=== PATIENT | male | born 1950 | race African-American/Black ===

== ENCOUNTER 2016-07-14 15:02 | Inpatient (IN) ==
--- NOTE | 2016-07-14 15:40 | EKG Report ---
Stationary ECG Study [facility] ER Test Date: 07/14/2016 3:40:53 PM Pat Name: EREN YOUNG Department: Room: Gender: M Ax Survey Worker: : 1950 Requested by: Jimenez Peña Order Number: [id number] Reading MD: MOY SHANKAR Intervals [place] Rate: 94 P: 59 ME: 164 QRS: 147 QRSD: 89 T: -33 QT: 367 QTc: 419 Interpretive Statements SINUS RHYTHM WITH FREQUENT SUPRAVENTRICULAR PREMATURE COMPLEXES POSSIBLE RIGHT VENTRICULAR HYPERTROPHY ANTEROSEPTAL MYOCARDIAL INFARCTION, PROBABLY OLD Electronically Signed On 07-14-16 16:18:58 CDT by MOY SHANKAR [email or web address]
[2016-07-14 15:41] LABS: Basophils % 0.3 % (0.0-0.8); Eosinophils # 0.2 10*3/uL (0.0-0.87); Eosinophils % 2.8 % (0.00-10.9); Hematocrit 27.5 VOL% (42.0-52.0); Hemoglobin 8.6 GM/DL (14.0-18.0); Immature Granulocytes % 0.1 %; Immature Granulocytes Absolute 0.01 #; Lymphocytes # 1.2 10*3/uL (1.4-4.0); Mean Corpuscular HGB Conc 31.3 GM/DL (32-36); Mean Corpuscular Hemoglobin 27 PG (27-34); Mean Corpuscular Volume 86.5 FL (87-102); Mean Platelet Volume 9.6 FL (9.6-12.0); Monocytes # 0.8 10*3/uL (0.11-0.8); Monocytes % 11.1 % (1.7-12.7); Neutrophils # 4.9 10*3/uL (1.4-7.4); Neutrophils % 68.7 % (38.7-73.9); Platelet Count 352 T/CUMM (130-400); Red Blood Count 3.18 MC/CUMM (3.8-5.5); Red Cell Distribution Width 14.6 % (9.3-17.3); White Blood Count 7.1 T/CUMM (4-12)
--- NOTE | 2016-07-14 15:46 | XRay Report ---
History short of breath The heart and vessels are enlarged There is [id number] diffuse bilateral hazy and reticular pulmonary opacities with compression of underlying a left pleural effusion. Impression: Congestive failure PROCEDURE INTERPRETED AT [facility] DEPARTMENT OF RADIOLOGY Final Report Signed by: Dr. Liss Contreras
[2016-07-14] MEDS ORDERED: FUROSEMIDE 40 MG/4 ML VIAL IV STA (16:05)
[2016-07-14] MEDS ORDERED: FUROSEMIDE 20 MG/2 ML VIAL ONE (16:11)
[2016-07-14] MEDS ORDERED: FUROSEMIDE 40 MG/4 ML VIAL ONE (16:11)
[2016-07-14 16:17] LABS: Albumin 2.7 G/DL (3.4-5.0); Calcium 8.7 MG/DL (8.5-10.1); Magnesium 1.3 MG/DL (1.8-2.4); Osmolality,Calculated 295.7 MOS/KG (273-304); Total Protein 7.4 G/DL (6.4-8.3)
--- NOTE | 2016-07-14 16:50 | Emergency Department Note ---
Robby Spears Gwan, am scribing for, and in the presence of, Jimenez An MD 15:37. Juve Spears Phillip K, MD, personally performed the services described in this documentation, ascribed by Isi Bustamante in my presence, and it is both accurate and complete 650 . Arrival - Arrival Chief Complaint: Urogenital - Male ED Nursing Triage Note: pt was seen at [place] 3 weeks ago for testicular pain/ swelling. his lasi was increased there. [facility] for same complaint Mode of Arrival: Stretcher Limitations: No Limitations Source: Patient, Family (Sister ), Old Records Reviewed, RN Notes Reviewed - History of Present Illness HPI Narrative: Patient is a 66 y/o black male who presents to the ED with a c/o edema to genital area and abd with an onset 3 weeks ago. Sister stated that pt was hospitalized at [place] [facility] 1 month ago due to CHF to which he was hospitalized for 1 week. She continued to note that the patients sxs returned 3 weeks ago and included edema and pain in his genital area. At that time he was prescribed Lasix with little to no relief. Sister continued to note that the patient returned to [place] 3-4 days ago and was just given an increase to his Lasix prescription. Today, pt's sxs have worsened prompting their visit to [place] ED for further evaluation. Patient confirmed that he is normally very mobile, that his associated sxs has been SOB and that he has a SHx hx of smoking cigarettes. He denies any hx of liver problems or doing any home breathing treatments. Patient displays obvious discomfort but does not appear to be in any distress. Onset (ago): week(s) Consistency: constant Severity: moderate Allergies/Adverse Reactions: Allergies Allergy/AdvReac Type Severity Reaction Status Date / Time No Known Allergies Allergy Unverified 07/14/16 15:10 Review of System - Review of System 12 point system: reviewed and no additional remarkable complaints except as stated - Review of System Constitutional: Absent: chills, fever Eyes: Absent: discharge, pain Head/Ears/Nose/Throat: Absent: earache Respiratory: Present: as per HPI, other (shortness of breathe ). Absent: cough Cardiovascular: Absent: chest pain Gastrointestinal: Absent: abdominal pain, nausea, vomiting Genitourinary male: Present: as per HPI, testicular pain (swelling and pain), other (penis edmea and pain ) Musculoskeletal: Absent: arm pain, back pain, lower back pain, leg pain Skin: Absent: rash, lesions Neurological: Absent: headache, weakness Medical,Surgical,& Family Hx - Medical History Cardio: History of: CHF Endocrine: History of: Diabetes Mellitus (NIDDM) Respiratory: History of: Respiratory Problems (resp failure) Gastrointestinal: History of: GERD - Social History Smoking Status: Never smoker Frequency of Alcohol Use: None Type of Drug Use: None Exam Vital Signs: Vital Signs Temperature 98.0 F 07/14/16 15:02 Pulse Rate 98 H 07/14/16 15:02 Respiratory Rate 28 H 07/14/16 15:36 Blood Pressure 147/95 07/14/16 15:02 O2 Sat by Pulse Oximetry 88 L 07/14/16 15:02 - General General appearance: alert, in no apparent distress - Head Head exam: Present: atraumatic, normocephalic - Eye Eye exam: Present: normal appearance, PERRL, EOMI - ENT ENT exam: Present: normal oropharynx, mucous membranes moist, TM's normal bilaterally, normal external ear exam - Neck Neck exam: Present: full ROM, trachea midline. Absent: tenderness - Chest Chest inspection: Present: symmetric chest wall rise. Absent: tenderness - Respiratory Respiratory exam: Present: prolonged expiratory phase. Absent: wheezes ( diffuse expiratory wheezes both lung merritt) - Cardiovascular Cardiovascular exam: Present: normal rhythm, irregular rhythm - Abdominal Exam Abdominal exam: Present: soft, normal bowel sounds - exam: Present: scrotal swelling, other (Ascites-large amount of edema to scrotum and penis; penis is uncircumcised). Absent: circumcised - Extremities Exam Extremities exam: Present: other (+1 edema bilateral LE; Venous stasis change noted to bilateral LE) - Back Exam Back exam: Present: full ROM. Absent: tenderness - Neurological Exam Neurological exam: Present: alert, oriented X3, CN II-XII intact. Absent: motor sensory deficit - Psychiatric Psychiatric exam: Present: normal affect, normal mood - Skin Skin exam: Present: warm, dry, other (+1 edema bilateral LE; Venous stasis change noted to bilateral LE; Ascites-large amount of edema to scrotum and penis ; penis is uncircumcised) Results - Labs CBC & BMP: 07/14/16 15:40 07/14/16 15:40 Lab Results: I have reviewed the patients labs Labs: Laboratory Tests 07/14/16 15:40 WBC 7.1 RBC 3.18 L Hgb 8.6 L Hct 27.5 L MCV 86.5 L MCHC 31.3 L Plt Count 352 Lymph # (Auto) 1.2 L Laboratory Tests 07/14/16 07/14/16 15:40 15:40 Sodium 145 Potassium 4.0 Chloride 104 Carbon Dioxide 36 H BUN 18 Creatinine 1.40 H Glucose 203 H Magnesium 1.3 L Total Bilirubin 0.60 L B-Natriuretic Peptide 1650 H Albumin 2.7 L Globulin 4.7 H Albumin/Globulin Ratio 0.5 L - EKG EKG results: interpreted by LAINA, sinus rhythm (Numerous supraventricular premature beats) - Diagnostic Findings Procedure: Chest x-ray: report reviewed by me (Congestive Failure ) Disposition Clinical Impression: Congestive heart failure, Anasarca Case discussed with: patient Condition: Guarded
[2016-07-14 17:21] LABS: Apearance,Urine CLEAR (Clear); Bacteria,Urine Occasional /HPF (Few); Bilirubin,Urine Negative (Negative); Blood, Urine Negative (Negative); Glucose,Urine (UA) Negative (Negative); Hyaline Casts,Urine 1 /LPF (0-3); Ketones,Urine Negative (Negative); Nitrite,Urine Negative (Negative); Protein,Urine Negative; RBC,Urine <1 /HPF (0-4); Urine Color Straw (Yellow); Urine Specific Gravity 1.005 (1.001-1.035); Urine Urobilinogen < 2.0 EU/DL (0.2-1.0); WBC,Urine <1 /HPF (0-6)
[2016-07-14] MEDS ORDERED: ACETAMINOPHEN 325 MG TABLET PO PRN (19:32)
[2016-07-14] MEDS ORDERED: ONDANSETRON 4 MG/2 ML VIAL IV PRN (19:32)
[2016-07-14] MEDS: DOCUSATE SODIUM 100 MG CAPSULE PO SCH (20:26)
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
[2016-07-14] MEDS ORDERED: MAGNESIUM SULF RIDER 2 GM in PREMIX 1 EACH IV ONE (21:21)
[2016-07-14] MEDS ORDERED: GLUCAGON 1 MG VIAL IM PRN (21:22)
[2016-07-14] MEDS ORDERED: DEXTROSE 50% 25 GM/50 ML VIAL IV PRN (21:22)
[2016-07-14] MEDS ORDERED: SODIUM CHLORIDE 0.9% 250 ML IV PRN (21:27)
[2016-07-14] MEDS ORDERED: LACTULOSE 20 GM/30 ML UDCUP PO PRN (21:37)
[2016-07-14] MEDS: SODIUM CHLORIDE 0.45% 1,000 ML IV SCH (22:07)
[2016-07-14] MEDS ORDERED: SKIN HEALING OINT (AQUAPHOR) 50 GM TUBE TOP PRN (22:48)
[2016-07-14] MEDS: ALBUTEROL/IPRATROPIUM 3 ML NEB RESP TX SCH (23:15)
[2016-07-14] MEDS: BUDESONIDE 0.25 MG/2 ML NEB RESP TX SCH (23:15)
[2016-07-15] MEDS: methylPREDNISolone SOD SUC 40 MG/1 ML VIAL IV SCH ×4 (00:34→23:50)
[2016-07-15] MEDS: cefTRIAXone 1,000 MG in SODIUM CHLORIDE 0.9% 100 ML IV SCH ×2 (00:36→23:51)
[2016-07-15] MEDS ORDERED: ALBUTEROL/IPRATROPIUM 3 ML NEB RESP TX SCH (01:00)
[2016-07-15 05:37] LABS: Basophils % 0.3 % (0.0-0.8); Eosinophils % 0.1 % (0.00-10.9); Hematocrit 29.6 VOL% (42.0-52.0); Hemoglobin 9.2 GM/DL (14.0-18.0); Immature Granulocytes % 0.4 %; Immature Granulocytes Absolute 0.03 #; Lymphocytes # 0.7 10*3/uL (1.4-4.0); Mean Corpuscular HGB Conc 31.1 GM/DL (32-36); Mean Corpuscular Hemoglobin 27 PG (27-34); Mean Corpuscular Volume 86.8 FL (87-102); Mean Platelet Volume 9.7 FL (9.6-12.0); Monocytes # 0.2 10*3/uL (0.11-0.8); Neutrophils # 6.6 10*3/uL (1.4-7.4); Neutrophils % 88.2 % (38.7-73.9); Platelet Count 359 T/CUMM (130-400); Red Blood Count 3.41 MC/CUMM (3.8-5.5); Red Cell Distribution Width 14.7 % (9.3-17.3); White Blood Count 7.5 T/CUMM (4-12)
[2016-07-15 06:15] LABS: Folate > 24.0 NG/ML (5.4-24.0); Vitamin B12 707 PG/ML (211-911)
[2016-07-15 06:17] LABS: Albumin 2.7 G/DL (3.4-5.0); Calcium 8.6 MG/DL (8.5-10.1); Magnesium 1.9 MG/DL (1.8-2.4); Osmolality,Calculated 287.8 MOS/KG (273-304); Potassium 4.2 MMOL/L (3.5-5.1); Total Protein 7.8 G/DL (6.4-8.3)
[2016-07-15] MEDS: ALBUTEROL/IPRATROPIUM 3 ML NEB RESP TX SCH ×4 (07:24→23:47)
[2016-07-15] MEDS: BUDESONIDE 0.25 MG/2 ML NEB RESP TX SCH ×2 (07:25→18:56)
[2016-07-15] MEDS: INSULIN REGULAR 100 UNIT/ML SUBCUT SCH ×4 (08:43→20:55)
--- NOTE | 2016-07-15 08:58 | Urology Consultation ---
Assessment and Plan - Time spent with patient Time spent with patient: Less than 30 minutes (1) Scrotal swelling Status: Acute Assessment and plan: Scrotal swelling is due to the congestive heart failure. This will improve when he mobilizes all his edema. The nurses will keep this elevated when he is lying in the bed. And this will just take some time. Reconsult as needed. Current Visit: Yes History of Present Illness - Data of Consult Patient: new to practice Consult date: 07/15/16 Requesting Physician: Nara Tafoya - Consult Narrative Reason for consult: Scrotal swelling History of present illness: Mr. Wagner is a 66 year old male who is admitted with congestive heart failure. He has had some swelling of his lower extremities and noticed large amount of swelling of the scrotum. Denies any problems urinating. He has had no hematuria. He has had no pelvic pain back pain or flank pain. CC: Nara Tafoya, DO - Home Medications and Allergies Home Medications: Home Medications Medication Instructions Recorded Confirmed Type Aspirin Chew Tab 81 mg PO DAILY 07/14/16 07/14/16 History Cholecalciferol [Vitamin D3] 1,000 unit PO DAILY 07/14/16 07/14/16 History Ergocalciferol [Drisdol] 50,000 unit PO MO 07/14/16 07/14/16 History Ferrous Sulfate Tab [Feosol 325 mg PO DAILY 07/14/16 07/14/16 History Original Tab] Folic Acid Tab 1 mg PO DAILY 07/14/16 07/14/16 History Ibuprofen Tab [Motrin Tab] 400 mg PO Q8H PRN 07/14/16 07/14/16 History Insulin Glargine [Lantus] 10 unit SUBCUT QAM 07/14/16 07/14/16 History Insulin Glargine [Lantus] 20 unit SUBCUT BEDTIME 07/14/16 07/14/16 History Lactulose Liquid [Chronulac] 15 ml PO Q12H PRN 07/14/16 07/14/16 History Magnesium Oxide 420 mg PO DAILY 07/14/16 07/14/16 History Metoprolol Tartrate Tab [Lopressor 100 mg PO Q12H 07/14/16 07/14/16 History Tab] Pantoprazole Tab [Protonix Tab] 40 mg PO DAILY 07/14/16 07/14/16 History Thiamine Tab [Vitamin B1 Tab] 100 mg PO DAILY 07/14/16 07/14/16 History traMADol TAB [Ultram] 50 mg PO Q6H PRN 07/14/16 07/14/16 History Allergies/Adverse Reactions: Allergies Allergy/AdvReac Type Severity Reaction Status Date / Time No Known Allergies Allergy Unverified 07/14/16 15:10 12 point system: reviewed and no additional remarkable complaints except as stated - Genitourinary Genitourinary: Present: scrotal swelling. Absent: difficulty urinating, dysuria , flank pain, hematuria, nocturia, testicular mass, testicular pain, urinary frequency, urinary incontinence Exam - Constitutional Vitals: Period Temp Pulse Resp BP Sys/Kat Pulse Ox Last 24 Hr 97.8 F-99.2 F 55-98 16-28 131-155/69-95 17-99 - GI/Abdominal GI/Abdominal exam: Present: soft. Absent: distended, firm, guarding, hernia, mass, tenderness, rebound - Genitourinary Genitourinary: other (Enlarged scrotum due to edema. His testicles are palpable and are normal) Results - Labs CBC & BMP: 07/15/16 05:24 07/15/16 05:24 Lab Results: I have reviewed the past 24 hour labs
[2016-07-15] MEDS ORDERED: ASPIRIN EC 81 MG TABLET PO SCH (09:00)
[2016-07-15] MEDS ORDERED: FOLIC ACID 1 MG TABLET PO SCH (09:00)
[2016-07-15] MEDS: FUROSEMIDE 20 MG/2 ML VIAL IV SCH (09:30)
[2016-07-15] MEDS: LISINOPRIL 5 MG TABLET PO SCH (09:30)
[2016-07-15] MEDS: FERROUS SULFATE 325 MG TABLET PO SCH (09:30)
[2016-07-15] MEDS: ASPIRIN CHEW 81 MG TABLET PO SCH (09:30)
[2016-07-15] MEDS: METOPROLOL TARTRATE 50 MG TABLET PO SCH ×2 (09:30→20:53)
[2016-07-15] MEDS: INSULIN GLARGINE 100 UNIT/ML SUBCUT SCH ×2 (09:30→20:56)
[2016-07-15] MEDS: MAGNESIUM OXIDE 400 MG TABLET PO SCH (09:30)
[2016-07-15] MEDS: THIAMINE 100 MG TABLET PO SCH (09:30)
[2016-07-15] MEDS: DOCUSATE SODIUM 100 MG CAPSULE PO SCH ×2 (09:30→20:53)
[2016-07-15 12:05] LABS: Bilirubin,Total 0.6 MG/DL (0.2-1.0)
[2016-07-15 12:27] LABS: Bilirubin,Total 0.7 MG/DL (0.2-1.0)
[2016-07-15] MEDS: SODIUM CHLORIDE 0.45% 1,000 ML IV SCH (13:12)
--- NOTE | 2016-07-15 14:38 | Internal Med Progress Note ---
Assessment and Plan (1) Diabetes Status: Chronic Current Visit: Yes Qualifiers: Diabetes mellitus type: type 2 Diabetes mellitus complication status: without complication Diabetes mellitus terminal computer operator insulin use: with terminal computer operator use Qualified Code(s): E11.9 - Type 2 diabetes mellitus without complications ; Z79.4 - terminal worker (current) use of insulin (2) Hypertension Status: Chronic Current Visit: Yes Qualifiers: Hypertension type: essential hypertension Qualified Code(s): I10 - Essential (primary) hypertension (3) Congestive heart failure Status: Chronic Current Visit: Yes (4) Generalized edema Status: Chronic Current Visit: Yes Internal Medicine - PN: Subj Interval history: Mr. Wagner is a 66 year old male with history of HTN, folate deficiency, Vit D deficiency, DM, dyslipidemia, recent CHF, who presented to ER with scrotal swelling and CHF. He was diuresed in ER and is not complaining of shortness of breath. However, oxygen saturation is low. He was hospitalized at [place], but did not improve. [facility] but was sent to [place] ER for worsening scrotal swelling. Lasix did not help. He is doing better today, breathing better. Scrotal swelling may take a few days to resolve. Have added albumin IV infusion to help against third spacing. Exam (Progress Note) - Constitutional Vitals: Period Temp Pulse Resp BP Sys/Kat Pulse Ox Last 24 Hr 97.4 F-99.2 F 55-100 16-28 131-155/69-96 17-99 General appearance: no acute distress - Respiratory Respiratory exam: Present: clear to auscultation bilaterally - Cardiovascular Cardiovascular exam: Present: regular rate and rhythm - GI/Abdominal GI/Abdominal exam: Present: soft. Absent: tenderness - Extremities Exam Extremities exam: Present: edema (scrotal edema) - Neurological Exam Neurological exam: Present: alert - Psychiatric Psychiatric exam: Present: normal mood - Skin Skin exam: Present: warm, dry Results - Labs CBC & BMP: 07/15/16 05:24 07/15/16 05:24 Quality Measures - VTE Contraindication to Pharmacological VTE Prophylaxis: Already on Theraputic Agent , No Prophylaxis Needed
--- NOTE | 2016-07-15 16:17 | ECHO Report ---
Edilberto Wagner Exam Date: 07/15/2016 08:29 Referring Physician: Technologist: Munira Hayes Age: 66 Ht (in): 68 Wt (lb): 222 Gender: M Exam Location: [facility] Echo Indications: HTN, CHF, edema, diabetes BP: 145 / 86 HR: 89 Rhythm: PVC's Technical Quality: Fair IMPRESSIONS Moderate concentric left ventricular hypertrophy with diastolic dysfunction. Left ventricular ejection fraction is estimated at 60-65 %. Normal right ventricular size. The right atrium is mildly enlarged. Severely increased left atrial diameter. Mild mitral valve leaflet calcification particularly of the posterior leaflet. Mild mitral valve regurgitation. Mild aortic valve sclerosis without stenosis or regurgitation. Morphologically normal tricuspid valve. Moderate tricuspid valve regurgitation. Tricuspid regurgitation velocities suggest a PAP of 49 mmHg. Morphologically normal pulmonic valve. Trace pulmonary valve regurgitation. No pericardial effusion. Normal size aortic root and proximal ascending aorta. MEASUREMENTS (Male / Female) Normal Values 2D ECHO LV Diastolic Diameter PLAX 4.9 cm 4.2 - 5.9 / 3.9 - 5.3 cm LV Systolic Diameter PLAX 2.6 cm LV Fractional Shortening PLAX 46.3 % IVS Diastolic Thickness 1.6 cm 0.6 - 1.0 / 0.6 - 0.9 cm LVPW Diastolic Thickness 1.5 cm 0.6 - 1.0 / 0.6 - 0.9 cm RV Internal Dim ED PLAX 3.2 cm Aortic Root Diameter 3.2 cm LA Systolic Diameter LX 5.5 cm 3.0 - 4.0 / 2.7 - 3.8 cm DOPPLER TR Peak Velocity 314.0 cm/s TR Peak Gradient 39.4 mmHg FINDINGS Left Ventricle moderate concentric left ventricular hypertrophy with diastolic dysfunction. Left ventricular ejection fraction is estimated at 60-65 %. Right Ventricle Normal right ventricular size. Right Atrium The right atrium is mildly enlarged. Left Atrium Severely increased left atrial diameter. Mitral Valve Mild mitral valve leaflet calcification particularly of the posterior leaflet. Mild mitral valve regurgitation. Aortic Valve Mild aortic valve sclerosis without stenosis or regurgitation. Tricuspid Valve Morphologically normal tricuspid valve. Moderate tricuspid valve regurgitation. Tricuspid regurgitation velocities suggest a PAP of 49 mmHg. Pulmonic Valve Morphologically normal pulmonic valve. Trace pulmonary valve regurgitation. Pericardium No pericardial effusion. Aorta Normal size aortic root and proximal ascending aorta. Michel Paz MD (Electronically Signed) Final Date: 15 July 2016 16:16
[2016-07-15] MEDS: ALBUMIN 25% 25 GM in PREMIX 1 EACH IV SCH (17:30)
[2016-07-15] MEDS: ENOXAPARIN 40 MG/0.4 ML SYRINGE SUBCUT SCH (17:30)
[2016-07-15] MEDS: traMADol 50 MG TABLET PO PRN (20:54)
[2016-07-16] MEDS: ALBUMIN 25% 25 GM in PREMIX 1 EACH IV SCH ×3 (01:52→18:00)
[2016-07-16 05:13] LABS: Basophils % 0.2 % (0.0-0.8); Hematocrit 28.8 VOL% (42.0-52.0); Hemoglobin 8.9 GM/DL (14.0-18.0); Immature Granulocytes % 0.3 %; Immature Granulocytes Absolute 0.02 #; Lymphocytes # 0.4 10*3/uL (1.4-4.0); Mean Corpuscular HGB Conc 30.9 GM/DL (32-36); Mean Corpuscular Hemoglobin 27 PG (27-34); Mean Platelet Volume 10.2 FL (9.6-12.0); Monocytes # 0.3 10*3/uL (0.11-0.8); Monocytes % 4.9 % (1.7-12.7); Neutrophils # 5.3 10*3/uL (1.4-7.4); Neutrophils % 87.6 % (38.7-73.9); Platelet Count 313 T/CUMM (130-400); Red Blood Count 3.31 MC/CUMM (3.8-5.5); Red Cell Distribution Width 14.9 % (9.3-17.3); White Blood Count 6.1 T/CUMM (4-12)
[2016-07-16] MEDS: ALBUTEROL/IPRATROPIUM 3 ML NEB RESP TX SCH ×3 (08:18→19:46)
[2016-07-16] MEDS: BUDESONIDE 0.25 MG/2 ML NEB RESP TX SCH ×2 (08:18→19:46)
[2016-07-16 08:27] LABS: Albumin 3.1 G/DL (3.4-5.0); Bilirubin,Total 0.6 MG/DL (0.2-1.0); Calcium 8.3 MG/DL (8.5-10.1); Potassium 4.8 MMOL/L (3.5-5.1); Total Protein 7.8 G/DL (6.4-8.3)
[2016-07-16] MEDS: INSULIN GLARGINE 100 UNIT/ML SUBCUT SCH ×2 (09:01→21:01)
[2016-07-16] MEDS: INSULIN REGULAR 100 UNIT/ML SUBCUT SCH ×4 (09:02→21:00)
[2016-07-16] MEDS: FUROSEMIDE 20 MG/2 ML VIAL IV SCH (09:02)
[2016-07-16] MEDS: methylPREDNISolone SOD SUC 40 MG/1 ML VIAL IV SCH ×3 (09:02→17:29)
[2016-07-16] MEDS: ASPIRIN CHEW 81 MG TABLET PO SCH (09:03)
[2016-07-16] MEDS: THIAMINE 100 MG TABLET PO SCH (09:03)
[2016-07-16] MEDS: METOPROLOL TARTRATE 50 MG TABLET PO SCH ×2 (09:03→21:00)
[2016-07-16] MEDS: LISINOPRIL 5 MG TABLET PO SCH (09:03)
[2016-07-16] MEDS: FERROUS SULFATE 325 MG TABLET PO SCH (09:03)
[2016-07-16] MEDS: MAGNESIUM OXIDE 400 MG TABLET PO SCH (09:03)
[2016-07-16] MEDS: DOCUSATE SODIUM 100 MG CAPSULE PO SCH ×2 (09:03→21:00)
[2016-07-16] MEDS: traMADol 50 MG TABLET PO PRN (09:16)
[2016-07-16] MEDS ORDERED: FUROSEMIDE 20 MG/2 ML VIAL IV ONE (15:32)
--- NOTE | 2016-07-16 16:10 | Family Practice Progress Note ---
Family Practice - PN: Subj Interval history: Patient states that he feels some better but is still not able to lay flat due to dyspnea. He thinks that the scrotal swelling has improved slightly. His weight is actually continued to increase since admission. BNP has increased since yesterday from 1448 to 2479. Reviewed cardiac echo. His physical exam reveals some persistent rales in bases. In view of persistent weight gain and elevated BNP will consult cardiology. Will increase Lasix dose today. Creatinine is increased from 1.3 to 1.7 today. We will repeat labs and chest x- ray a.m. Exam (Progress Note) - Constitutional Vitals: Period Temp Pulse Resp BP Sys/Kat Pulse Ox Last 24 Hr 97.3 F-98.0 F 52-100 17-20 106-146/54-81 94-99 Results - Labs CBC & BMP: 07/16/16 04:22 07/16/16 04:22 Quality Measures - VTE Contraindication to Pharmacological VTE Prophylaxis: Already on Theraputic Agent , No Prophylaxis Needed
[2016-07-16] MEDS: CHOLECALCIFEROL 1,000 UNIT TABLET PO SCH (16:58)
[2016-07-16] MEDS: FUROSEMIDE 20 MG TABLET PO SCH (16:58)
[2016-07-16] MEDS: ENOXAPARIN 40 MG/0.4 ML SYRINGE SUBCUT SCH (17:40)
[2016-07-16] MEDS: cefTRIAXone 1,000 MG in SODIUM CHLORIDE 0.9% 100 ML IV SCH (23:58)
[2016-07-17] MEDS: ALBUTEROL/IPRATROPIUM 3 ML NEB RESP TX SCH ×4 (00:03→19:45)
[2016-07-17] MEDS: ALBUMIN 25% 25 GM in PREMIX 1 EACH IV SCH ×3 (00:28→17:17)
[2016-07-17] MEDS: methylPREDNISolone SOD SUC 40 MG/1 ML VIAL IV SCH ×2 (02:55→17:17)
[2016-07-17 06:11] LABS: Hematocrit 29.6 VOL% (42.0-52.0); Immature Granulocytes % 0.4 %; Immature Granulocytes Absolute 0.03 #; Lymphocytes # 0.7 10*3/uL (1.4-4.0); Lymphocytes % 8.9 % (21.2-54.2); Mean Corpuscular HGB Conc 30.4 GM/DL (32-36); Mean Corpuscular Hemoglobin 27 PG (27-34); Mean Corpuscular Volume 88.4 FL (87-102); Mean Platelet Volume 9.9 FL (9.6-12.0); Monocytes # 0.7 10*3/uL (0.11-0.8); Monocytes % 8.9 % (1.7-12.7); Neutrophils # 6.2 10*3/uL (1.4-7.4); Neutrophils % 81.8 % (38.7-73.9); Platelet Count 297 T/CUMM (130-400); Red Blood Count 3.35 MC/CUMM (3.8-5.5); Red Cell Distribution Width 15.1 % (9.3-17.3); White Blood Count 7.6 T/CUMM (4-12)
[2016-07-17 06:43] LABS: Albumin 3.8 G/DL (3.4-5.0); Bilirubin,Total 0.8 MG/DL (0.2-1.0); Osmolality,Calculated 295.1 MOS/KG (273-304); Potassium 5.2 MMOL/L (3.5-5.1); Total Protein 7.7 G/DL (6.4-8.3)
[2016-07-17] MEDS: BUDESONIDE 0.25 MG/2 ML NEB RESP TX SCH ×2 (07:41→19:46)
--- NOTE | 2016-07-17 09:04 | XRay Report ---
2 view chest. Indication: Congestive heart failure. The heart is enlarged. The pulmonary vasculature shows interval improvement. Interstitial infiltrates have mostly cleared. There are moderate bilateral pleural effusions. Stable osseous structures. Impression: Interval improvement in the findings of congestive heart failure. Persistent cardiomegaly and pleural effusion. PROCEDURE INTERPRETED AT [facility] DEPARTMENT OF RADIOLOGY Final Report Signed by: Dr. Nayeli Contreras
[2016-07-17] MEDS: INSULIN REGULAR 100 UNIT/ML SUBCUT SCH ×4 (09:54→21:50)
[2016-07-17] MEDS: FUROSEMIDE 20 MG/2 ML VIAL IV SCH (09:54)
[2016-07-17] MEDS: FERROUS SULFATE 325 MG TABLET PO SCH (09:55)
[2016-07-17] MEDS: CHOLECALCIFEROL 1,000 UNIT TABLET PO SCH (09:55)
[2016-07-17] MEDS: LISINOPRIL 5 MG TABLET PO SCH (09:55)
[2016-07-17] MEDS: INSULIN GLARGINE 100 UNIT/ML SUBCUT SCH ×2 (09:55→21:50)
[2016-07-17] MEDS: MAGNESIUM OXIDE 400 MG TABLET PO SCH (09:55)
[2016-07-17] MEDS: ASPIRIN CHEW 81 MG TABLET PO SCH (09:55)
[2016-07-17] MEDS: DOCUSATE SODIUM 100 MG CAPSULE PO SCH ×2 (09:55→21:49)
[2016-07-17] MEDS: THIAMINE 100 MG TABLET PO SCH (09:55)
[2016-07-17] MEDS: FUROSEMIDE 20 MG TABLET PO SCH (09:56)
[2016-07-17] MEDS: METOPROLOL TARTRATE 50 MG TABLET PO SCH ×2 (09:58→21:50)
--- NOTE | 2016-07-17 12:10 | Family Practice Progress Note ---
Family Practice - PN: Subj Interval history: Patient states that he feels much better today. States she is able to lay flat is the first time since admission. His a.m. chest x-ray is much improved. His weights have not decreased. His creatinine is increased to 2.7 and potassium 5.2. I have reduced his Lasix and stop the lisinopril. His BNP has improved this a.m. His lung merritt are actually clear to auscultation .I have asked cardiology to eval. .He is probably a little dry but his wt have remained unchanged. Exam (Progress Note) - Constitutional Vitals: Period Temp Pulse Resp BP Sys/Kat Pulse Ox Last 24 Hr 97.6 F-98.0 F 55-89 17-20 127-144/68-81 95-99 Results - Labs CBC & BMP: 07/17/16 05:43 07/17/16 05:43 Quality Measures - VTE Contraindication to Pharmacological VTE Prophylaxis: Already on Theraputic Agent , No Prophylaxis Needed
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
[2016-07-17] MEDS: ENOXAPARIN 40 MG/0.4 ML SYRINGE SUBCUT SCH (17:17)
[2016-07-17] MEDS: traMADol 50 MG TABLET PO PRN (21:50)
[2016-07-18] MEDS: ALBUTEROL/IPRATROPIUM 3 ML NEB RESP TX SCH ×4 (00:31→20:44)
[2016-07-18] MEDS: cefTRIAXone 1,000 MG in SODIUM CHLORIDE 0.9% 100 ML IV SCH (00:33)
[2016-07-18] MEDS: ALBUMIN 25% 25 GM in PREMIX 1 EACH IV SCH ×3 (01:58→17:42)
[2016-07-18] MEDS: methylPREDNISolone SOD SUC 40 MG/1 ML VIAL IV SCH ×2 (03:21→17:46)
[2016-07-18 06:35] LABS: Basophils % 0.1 % (0.0-0.8); Eosinophils % 0.4 % (0.00-10.9); Hematocrit 28.9 VOL% (42.0-52.0); Hemoglobin 8.9 GM/DL (14.0-18.0); Immature Granulocytes % 0.4 %; Immature Granulocytes Absolute 0.04 #; Lymphocytes # 1.4 10*3/uL (1.4-4.0); Lymphocytes % 14.6 % (21.2-54.2); Mean Corpuscular HGB Conc 30.8 GM/DL (32-36); Mean Corpuscular Hemoglobin 27 PG (27-34); Mean Platelet Volume 10.2 FL (9.6-12.0); Monocytes # 1.2 10*3/uL (0.11-0.8); Monocytes % 12.7 % (1.7-12.7); Neutrophils % 71.8 % (38.7-73.9); Platelet Count 326 T/CUMM (130-400); Red Blood Count 3.32 MC/CUMM (3.8-5.5); Red Cell Distribution Width 15.4 % (9.3-17.3); White Blood Count 9.7 T/CUMM (4-12)
[2016-07-18 07:01] LABS: Albumin 3.8 G/DL (3.4-5.0); Bilirubin,Total 0.7 MG/DL (0.2-1.0); Calcium 8.9 MG/DL (8.5-10.1); Osmolality,Calculated 295.1 MOS/KG (273-304); Potassium 4.6 MMOL/L (3.5-5.1); Total Protein 8.1 G/DL (6.4-8.3)
[2016-07-18] MEDS: BUDESONIDE 0.25 MG/2 ML NEB RESP TX SCH ×2 (07:11→20:44)
[2016-07-18] MEDS: INSULIN REGULAR 100 UNIT/ML SUBCUT SCH ×4 (08:37→21:18)
[2016-07-18] MEDS: INSULIN GLARGINE 100 UNIT/ML SUBCUT SCH ×2 (08:39→21:13)
[2016-07-18] MEDS: THIAMINE 100 MG TABLET PO SCH (09:10)
[2016-07-18] MEDS: MAGNESIUM OXIDE 400 MG TABLET PO SCH (09:10)
[2016-07-18] MEDS: CHOLECALCIFEROL 1,000 UNIT TABLET PO SCH (09:10)
[2016-07-18] MEDS: FERROUS SULFATE 325 MG TABLET PO SCH (09:10)
[2016-07-18] MEDS: DOCUSATE SODIUM 100 MG CAPSULE PO SCH ×2 (09:11→21:13)
[2016-07-18] MEDS: ASPIRIN CHEW 81 MG TABLET PO SCH (09:11)
[2016-07-18] MEDS: METOPROLOL TARTRATE 50 MG TABLET PO SCH ×2 (09:11→21:13)
--- NOTE | 2016-07-18 12:59 | Cardiology Progress Note ---
Shad Spears Vanessa, RN, am scribing for, and in the presence of, Hakeem Madrid MD 12:53. Assessment and Plan - Time spent with patient Time spent with patient: Greater than 30 minutes (1) Congestive heart failure Status: Chronic Assessment and plan: This appears to be diastolic in nature. Clinically this is improved, BNP though still elevated but this may be multifactorial. Current Visit: Yes Qualifiers: Congestive heart failure type: diastolic Congestive heart failure chronicity: acute on chronic Qualified Code(s): I50.33 - Acute on chronic diastolic (congestive) heart failure (2) Hypertension Status: Chronic Assessment and plan: Overall, fairly well-controlled. At times blood pressures elevated. In addition medication may be needed as discussed above. Current Visit: Yes Qualifiers: Hypertension type: essential hypertension Qualified Code(s): I10 - Essential (primary) hypertension (3) Generalized edema Status: Chronic Assessment and plan: Reports this is improving. This will probably be a slow process. This can be follow-up as an outpatient if he is otherwise stable. Hopefully will be compliant with follow-up. Current Visit: Yes (4) Smoker Status: Chronic Assessment and plan: Encouraged tobacco cessation. Current Visit: Yes (5) Diabetes Status: Chronic Assessment and plan: Primary management physician. Hypoglycemia earlier this morning with blood glucose of 20 improved after peanut butter, crackers, orange juice with extra sugar with follow-up Accu-Chek of 90 Current Visit: Yes Qualifiers: Diabetes mellitus type: type 2 Diabetes mellitus complication status: without complication Diabetes mellitus longwall foreman insulin use: with longwall foreman use Qualified Code(s): E11.9 - Type 2 diabetes mellitus without complications ; Z79.4 - terminologist (current) use of insulin (6) Suspected sleep apnea Status: Acute Assessment and plan: Sleep medicine has been consulted, and Dr. Tate to evaluate. Current Visit: Yes (7) Scrotal swelling Status: Acute Assessment and plan: Urology has been consulted, and it was felt real edema related to congestive heart failure. Scrotal edema has shown some improvement. Current Visit: Yes (8) Diastolic heart failure Status: Acute Assessment and plan: This is based on his echocardiogram. Certainly be contributed to his heart failure. Current Visit: Yes (9) Hypoalbuminemia Status: Acute Assessment and plan: This is as far been corrected by exogenous albumin given. Current Visit: Yes Cardiology - PN: Subj Interval history: PRIMARY POWER HOUSE ENGINEER: DR. CRAWFORD (NEW) SUMMARY: Mr. Wagner is a 66-year-old black male with risk factor significant for hypertension, diabetes, tobacco use, and family history of CAD. Past medical history includes Congestive heart failure, respiratory failure, chronic renal insufficiency, anemia. Patient presented to [facility] ED on July 14 complaining of scrotal edema and some abdominal distention with onset 3 weeks prior. He did report that he had recently been hospitalized for 1 week and discharged from [facility] for treatment of CHF resulting in acute respiratory failure with subsequent intubation, and he was currently admitted to a swing bed facility. He had also visited [facility] recently, and had had his Lasix dose increased without much improvement in his shortness of breath or swelling. Chest x-ray in ER showed moderate diffuse pulmonary opacities bilaterally, and BNP 1650. Patient also had some orthopnea. He was admitted to [facility] floor for diuresis and observation. Echocardiogram on July 15 with moderate LVH, diastolic dysfunction, LV ejection fraction 60-65%, normal RV, mildly enlarged RA, severely increased LA, mild MR, moderate TR with PA pressure 49 mmHg. Patient has had a fair response to diuresis. Chest x-ray is improved. Urology has evaluated patient. Cardiology was asked to see for further evaluation of acute on chronic diastolic congestive heart failure with LV ejection fraction 60-65%. July: Patient is awake and alert this morning, and he is standing up in the watching television and looking out the windows. He is in no acute distress. Denies chest pain or shortness of breath. Patient does have some mild dyspnea on exertion, and he is putting on his supplemental oxygen via nasal cannula. Reports he has had it off for the past few hours. Appetite is good. He reports his scrotal edema is improving. Since admission and diuresis, his creatinine was noted to elevate to 2.7 yesterday and slightly hyperkalemic with K+ 5.2. Furosemide and lisinopril held. Today, creatinine with slight improvement and is 2.3 with K+ 4.6. Systolic BP 135-160 mmHg. Cervical historically clinically the patient seems to be improved. Unfortunately his renal function has not improved. Etiology of his edema is probably diastolic dysfunction. By echocardiogram he only has mild elevated right-sided pressures. Patient initially had hypoalbuminemia but this is corrected. Patient orders she is receiving exogenous albumin. Certainly all of his edema may be explained by diastolic dysfunction having what appears to be congestive heart failure and pleural effusion. His PA pressures are not as high as I would expect to cause this much edema. Certainly with his initial hypoalbuminemia this can exacerbate this though. His blood pressures are running on the higher side and needed. With his elevated creatinine certain medications will be limited. Stay away from ARB's as well as TRAVIS inhibitors because of his elevated potassium and creatinine. The addition of a calcium channel delilah especially the dihydropyridine calcium channel delilah may exacerbate his edema. Hydralazine or clonidine as well as terazocin etc. may be a choice. Exam (Progress Note) - Constitutional Vitals: Period Temp Pulse Resp BP Sys/Kat Pulse Ox Last 24 Hr 97.4 F-98.0 F 78-87 17-22 117-167/70-90 88-98 General appearance: no acute distress, over weight - Head Head exam: Present: normal inspection. Absent: abrasion, contusion, laceration - Eye Eye exam: Present: EOMI. Absent: periorbital swelling, laceration to eyelids Pupils: Present: EZEQUIEL. Absent: dilated, fixed - ENT ENT exam: Present: normal external ear exam - Neck Neck exam: Present: normal inspection. Absent: tenderness - Respiratory Respiratory exam: Present: clear to auscultation bilaterally. Absent: accessory muscle use, rales, rhonchi, stridor, wheezes - Cardiovascular Cardiovascular exam: Present: systolic murmur. Absent: bradycardia, carotid bruit, JVD, tachycardia - GI/Abdominal GI/Abdominal exam: Present: hypoactive bowel sounds, soft. Absent: firm, mass, tenderness - Extremities Exam Extremities exam: Present: normal capillary refill, full ROM, edema (Trace, bilateral lower extremities. Scrotal edema (improving)). Absent: calf tenderness - Back Exam Back exam: Present: normal inspection - Neurological Exam Neurological exam: Present: alert, oriented X3 - Psychiatric Psychiatric exam: Present: normal affect, normal mood. Absent: agitated, anxious, depressed - Skin Skin exam: Present: warm, dry, intact. Absent: abrasion, cyanosis, diaphoretic , rash Result/EKG - Labs CBC & BMP: 07/18/16 05:26 07/18/16 05:26 Lab Results: I have reviewed the past 24 hour labs Labs: Laboratory Results - last 24 hr 07/17/16 07/17/16 07/17/16 12:46 16:54 20:50 WBC RBC Hgb Hct MCV MCH MCHC RDW Plt Count MPV Neut % (Auto) Lymph % (Auto) Mccracken % (Auto) Eos % (Auto) Baso % (Auto) Neut # (Auto) Lymph # (Auto) Mccracken # (Auto) Eos # (Auto) Baso # (Auto) Immature Gran % Nucleated RBC % Immature Gran # Nucleated RBCs # Sodium Potassium Chloride Carbon Dioxide Anion Gap BUN Creatinine GFR Calculation BUN/Creatinine Ratio Glucose POC Glucose 208 H 129 H 209 H Calculated Osmolality Calcium Total Bilirubin AST ALT Alkaline Phosphatase Total Protein Albumin Globulin Albumin/Globulin Ratio 07/18/16 07/18/16 07/18/16 05:26 05:26 07:08 WBC 9.7 RBC 3.32 L Hgb 8.9 L Hct 28.9 L MCV 87.0 MCH 27 MCHC 30.8 L RDW 15.4 Plt Count 326 MPV 10.2 Neut % (Auto) 71.8 Lymph % (Auto) 14.6 L Mccracken % (Auto) 12.7 Eos % (Auto) 0.4 Baso % (Auto) 0.1 Neut # (Auto) 7.0 Lymph # (Auto) 1.4 Mccracken # (Auto) 1.2 H Eos # (Auto) 0.0 Baso # (Auto) 0.0 Immature Gran % 0.4 Nucleated RBC % 0.0 Immature Gran # 0.04 Nucleated RBCs # 0.00 Sodium 142 Potassium 4.6 Chloride 101 Carbon Dioxide 34 H Anion Gap 11.6 BUN 61 H D Creatinine 2.30 H GFR Calculation 42 BUN/Creatinine Ratio 26.00 H Glucose 22 L* POC Glucose < 20 L* Calculated Osmolality 295.1 Calcium 8.9 Total Bilirubin 0.70 AST 25 ALT 26 Alkaline Phosphatase 63 Total Protein 8.1 Albumin 3.8 Globulin 4.3 H Albumin/Globulin Ratio 0.8 L 07/18/16 08:17 WBC RBC Hgb Hct MCV MCH MCHC RDW Plt Count MPV Neut % (Auto) Lymph % (Auto) Mccracken % (Auto) Eos % (Auto) Baso % (Auto) Neut # (Auto) Lymph # (Auto) Mccracken # (Auto) Eos # (Auto) Baso # (Auto) Immature Gran % Nucleated RBC % Immature Gran # Nucleated RBCs # Sodium Potassium Chloride Carbon Dioxide Anion Gap BUN Creatinine GFR Calculation BUN/Creatinine Ratio Glucose POC Glucose 90 Calculated Osmolality Calcium Total Bilirubin AST ALT Alkaline Phosphatase Total Protein Albumin Globulin Albumin/Globulin Ratio - Diagnostic Findings Procedure: Chest x-ray: image reviewed by me, report reviewed by me - EKG EKG results: interpreted by me, no acute changes EKG shows: sinus rhythm Quality Measures - VTE Contraindication to Pharmacological VTE Prophylaxis: Already on Theraputic Agent , No Prophylaxis Needed IJulius John Timothy, MD, personally performed the services described in this documentation, ascribed by Moni Kulkarni RN in my presence, and it is both accurate and complete [id number] .
[2016-07-18] MEDS ORDERED: ERGOCALCIFEROL 50,000 UNIT CAPSULE PO SCH (15:25)
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
[2016-07-18] MEDS: ENOXAPARIN 40 MG/0.4 ML SYRINGE SUBCUT SCH (17:46)
[2016-07-18] MEDS: traMADol 50 MG TABLET PO PRN (18:14)
--- NOTE | 2016-07-18 20:03 | Internal Med Progress Note ---
Assessment and Plan (1) Diabetes Status: Chronic Current Visit: Yes Qualifiers: Diabetes mellitus type: type 2 Diabetes mellitus complication status: without complication Diabetes mellitus internal control consultant insulin use: with internal control consultant use Qualified Code(s): E11.9 - Type 2 diabetes mellitus without complications ; Z79.4 - mopper (current) use of insulin (2) Hypertension Status: Chronic Current Visit: Yes Qualifiers: Hypertension type: essential hypertension Qualified Code(s): I10 - Essential (primary) hypertension (3) Congestive heart failure Status: Chronic Current Visit: Yes Qualifiers: Congestive heart failure type: diastolic Congestive heart failure chronicity: acute on chronic Qualified Code(s): I50.33 - Acute on chronic diastolic (congestive) heart failure (4) Generalized edema Status: Chronic Current Visit: Yes (5) Acute renal insufficiency Status: Acute Current Visit: Yes (6) Alcohol abuse Status: Acute Current Visit: Yes (7) Diastolic heart failure Status: Acute Current Visit: Yes Qualifiers: Heart failure chronicity: acute on chronic Qualified Code(s): I50.33 - Acute on chronic diastolic (congestive) heart failure (8) Hypoalbuminemia Status: Acute Current Visit: Yes (9) Suspected sleep apnea Status: Acute Current Visit: Yes (10) Smoker Status: Chronic Current Visit: Yes Internal Medicine - PN: Subj Interval history: Mr. Wagner is a 66 year old male with history of HTN, folate deficiency, Vit D deficiency, DM, dyslipidemia, recent CHF, who presented to ER with scrotal swelling and CHF. He was diuresed in ER and is not complaining of shortness of breath. However, oxygen saturation is low. He was hospitalized at [facility], but did not improve. [facility], but was sent to [place] ER for worsening scrotal swelling. Lasix did not help. He is doing better today, breathing better. Scrotal swelling may take a few days to resolve. Have added albumin IV infusion to help against third spacing. July 18, he is feeling better overall. However, he is anemic and may benefit from another unit of pRBC. Also, renal insufficiency has worsened. Will be addressed. BNP has improved along with improved generalized edema. He has history of alcohol abuse and is a current smoker. Will add nicotine patch. Exam (Progress Note) - Constitutional Vitals: Period Temp Pulse Resp BP Sys/Kat Pulse Ox Last 24 Hr 97.2 F-97.6 F 71-100 16-28 136-161/72-94 91-98 Exam: General appearance: no acute distress - Respiratory Respiratory exam: Present: clear to auscultation bilaterally - Cardiovascular Cardiovascular exam: Present: regular rate and rhythm - GI/Abdominal GI/Abdominal exam: Present: soft. Absent: tenderness - Extremities Exam Extremities exam: Present: edema (scrotal edema) - Neurological Exam Neurological exam: Present: alert - Psychiatric Psychiatric exam: Present: normal mood - Skin Skin exam: Present: warm, dry Results - Labs CBC & BMP: 07/18/16 05:26 07/18/16 05:26 Quality Measures - VTE Contraindication to Pharmacological VTE Prophylaxis: Already on Theraputic Agent , No Prophylaxis Needed
[2016-07-18] MEDS ORDERED: SODIUM CHLORIDE 0.9% 250 ML IV PRN (22:29)
[2016-07-18] MEDS: hydrALAZINE 25 MG TABLET PO SCH (23:59)
[2016-07-19] MEDS: cefTRIAXone 1,000 MG in SODIUM CHLORIDE 0.9% 100 ML IV SCH (00:01)
[2016-07-19] MEDS: ALBUTEROL/IPRATROPIUM 3 ML NEB RESP TX SCH ×4 (01:08→19:55)
[2016-07-19] MEDS: methylPREDNISolone SOD SUC 40 MG/1 ML VIAL IV SCH ×2 (05:37→16:31)
[2016-07-19 07:50] LABS: Hematocrit 31.8 VOL% (42.0-52.0); Hemoglobin 10.1 GM/DL (14.0-18.0); Immature Granulocytes % 0.3 %; Immature Granulocytes Absolute 0.02 #; Lymphocytes # 0.7 10*3/uL (1.4-4.0); Mean Corpuscular HGB Conc 31.8 GM/DL (32-36); Mean Corpuscular Hemoglobin 27 PG (27-34); Mean Corpuscular Volume 86.2 FL (87-102); Monocytes # 0.6 10*3/uL (0.11-0.8); Monocytes % 7.8 % (1.7-12.7); Neutrophils # 5.8 10*3/uL (1.4-7.4); Neutrophils % 81.9 % (38.7-73.9); Platelet Count 265 T/CUMM (130-400); Red Blood Count 3.69 MC/CUMM (3.8-5.5); Red Cell Distribution Width 15.2 % (9.3-17.3)
[2016-07-19] MEDS: BUDESONIDE 0.25 MG/2 ML NEB RESP TX SCH ×2 (08:03→19:55)
[2016-07-19 08:14] LABS: Calcium 9.4 MG/DL (8.5-10.1); Osmolality,Calculated 294.4 MOS/KG (273-304); Potassium 5.2 MMOL/L (3.5-5.1)
[2016-07-19] MEDS: traMADol 50 MG TABLET PO PRN (09:28)
[2016-07-19] MEDS: hydrALAZINE 25 MG TABLET PO SCH ×2 (09:28→21:24)
[2016-07-19] MEDS: ASPIRIN CHEW 81 MG TABLET PO SCH (09:28)
[2016-07-19] MEDS: MAGNESIUM OXIDE 400 MG TABLET PO SCH (09:28)
[2016-07-19] MEDS: DOCUSATE SODIUM 100 MG CAPSULE PO SCH ×2 (09:28→21:24)
[2016-07-19] MEDS: CHOLECALCIFEROL 1,000 UNIT TABLET PO SCH (09:28)
[2016-07-19] MEDS: INSULIN REGULAR 100 UNIT/ML SUBCUT SCH ×4 (09:29→21:22)
[2016-07-19] MEDS: INSULIN GLARGINE 100 UNIT/ML SUBCUT SCH ×2 (09:29→21:23)
[2016-07-19] MEDS: FERROUS SULFATE 325 MG TABLET PO SCH (09:29)
[2016-07-19] MEDS: METOPROLOL TARTRATE 50 MG TABLET PO SCH ×2 (09:29→21:24)
[2016-07-19] MEDS: NICOTINE 14 MG/24 HR PATCH TRANSDERM SCH (09:29)
[2016-07-19] MEDS: THIAMINE 100 MG TABLET PO SCH (09:30)
[2016-07-19] MEDS: ENOXAPARIN 40 MG/0.4 ML SYRINGE SUBCUT SCH (16:31)
--- NOTE | 2016-07-19 17:39 | Cardiology Progress Note ---
Shad Spears Vanessa, RN, am scribing for, and in the presence of, Hakeem Madrid MD 17:33. Assessment and Plan - Time spent with patient Time spent with patient: Greater than 30 minutes (1) Congestive heart failure Status: Chronic Assessment and plan: BNP remains to elevate, and is >3000 today. As it appears to be diastolic in nature, it may be multifactorial. Also he has a lot like a nephrotic syndrome even though with the albumin his albumin levels are up. He has diffuse edema without overt left heart failure to lab he would expect. He may actually have more pulmonary hypertension then noted on echocardiogram will have an element of right heart failure. Current Visit: Yes Qualifiers: Congestive heart failure type: diastolic Congestive heart failure chronicity: acute on chronic Qualified Code(s): I50.33 - Acute on chronic diastolic (congestive) heart failure (2) Hypertension Status: Chronic Assessment and plan: Overall, blood pressures are fairly well controlled but he certainly has room for improvement. He does have some transient hypertension with systolic pressure 170. With his creatinine being elevated, certain medications will be limited to would recommend staying away from arms as well as TRAVIS inhibitors because of elevated potassium and creatinine the addition of a CA+ channel delilah especially dihydropridine may exacerbate his edema. Hydralazine or clonidine as well as terazosin may be a good choice. Current Visit: Yes Qualifiers: Hypertension type: essential hypertension Qualified Code(s): I10 - Essential (primary) hypertension (3) Generalized edema Status: Chronic Assessment and plan: This has shown some improvement, and complete resolution of this will be ongoing , slow process. Can be monitored and followed up with on an outpatient basis. Of course, patient will need to be compliant with medical regimen. Current Visit: Yes (4) Smoker Status: Chronic Assessment and plan: Encouraged tobacco cessation. He has had a nicotine patch added. Current Visit: Yes (5) Diabetes Status: Chronic Assessment and plan: Primary management physician. No further hypoglycemia today. Glucose greater than 200 today. Current Visit: Yes Qualifiers: Diabetes mellitus type: type 2 Diabetes mellitus complication status: without complication Diabetes mellitus alf insulin use: with termite control representative use Qualified Code(s): E11.9 - Type 2 diabetes mellitus without complications ; Z79.4 - oil heaterman (current) use of insulin (6) Suspected sleep apnea Status: Acute Assessment and plan: Most certainly can be a contributing factor to diastolic dysfunction. He has been evaluated by sleep medicine. Dr. Tate and staff to set up for patient sleep study. Appears to be too unstable at this point, and HST is not considered. Current Visit: Yes (7) Scrotal swelling Status: Acute Assessment and plan: Urology has been consulted, and it was felt real edema related to congestive heart failure. Scrotal edema has shown some improvement, and today remains about the same. Current Visit: Yes Cardiology - PN: Subj Interval history: PRIMARY RIVETING MACHINE OPERATOR AUTOMATIC: DR. CRAWFORD (NEW) SUMMARY: Mr. Wagner is a 66-year-old black male with risk factor significant for hypertension, diabetes, tobacco use, and family history of CAD. Past medical history includes Congestive heart failure, respiratory failure, chronic renal insufficiency, anemia. Patient presented to [facility] ED on July 14 complaining of scrotal edema and some abdominal distention with onset 3 weeks prior. He did report that he had recently been hospitalized for [address] [facility] for treatment of CHF resulting in acute respiratory failure with subsequent intubation, and he was currently admitted to a swing bed facility. He had also visited [place] ER recently, and had had his Lasix dose increased without much improvement in his shortness of breath or swelling. Chest x-ray in ER showed moderate diffuse pulmonary opacities bilaterally, and BNP 1650. Patient also had some orthopnea. He was admitted to [facility] floor for diuresis and observation. Echocardiogram on July 15 with moderate LVH, diastolic dysfunction, LV ejection fraction 60-65%, normal RV, mildly enlarged RA, severely increased LA, mild MR, moderate TR with PA pressure 49 mmHg. Patient has had a fair response to diuresis. Chest x-ray is improved. Urology has evaluated patient. Cardiology was asked to see for further evaluation of acute on chronic diastolic congestive heart failure with LV ejection fraction 60-65%. July UPDATE: appears comfortable this morning, he is awake and alert sitting up in bedside chair watching television talking on telephone per no acute distress noted he is not short of breath, and he denies having chest pain or discomfort. Continues to have some mild dyspnea on exertion. He is not requiring supplemental oxygen today. Bilateral lower extremity edema without much change , and he reports scrotal edema is about the same as yesterday. Systolic BP is averaging 160-170 mmHg. At the level improved from 2.3-1.5 today. Slightly hyperkalemic with K+ 5.2. BNP has trended up and is 3265 today. Per chart, he had some transient bradycardia with pulse rate in the 50s yesterday evening, and earlier this morning in the 40s. By exam, pulse is 80s and regular. H&H 8.9/28.9 yesterday, and he did receive 1 unit PRBC overnight, and posttransfusion this morning H&H is 10.1/31.8. With his blood pressure still elevated by tomorrow may need to consider increasing his hydralazine. Diuresing the patient was certainly be desirable but because of his increasing creatinine went diuresed this limits this. We may need to ask nephrology to see the patient to help assist in the situation. This patient behaves a lot like a nephrotic syndrome. Exam (Progress Note) - Constitutional Vitals: Period Temp Pulse Resp BP Sys/Kat Pulse Ox Last 24 Hr 97.1 F-98.7 F 45-100 16-28 137-171/77-95 79-99 Exam: General appearance: no acute distress, over weight - Head Head exam: Present: normal inspection. Absent: abrasion, contusion, laceration - Eye Eye exam: Present: EOMI. Absent: periorbital swelling, laceration to eyelids Pupils: Present: EZEQUIEL. Absent: dilated, fixed - ENT ENT exam: Present: normal external ear exam - Neck Neck exam: Present: normal inspection. Absent: tenderness - Respiratory Respiratory exam: Present: clear to auscultation bilaterally. Absent: accessory muscle use, rales, rhonchi, stridor, wheezes - Cardiovascular Cardiovascular exam: Present: systolic murmur, regular rhythm, transient bradycardia. Absent: carotid bruit, JVD, tachycardia - GI/Abdominal GI/Abdominal exam: Present: hypoactive bowel sounds, soft. Absent: firm, mass, tenderness - Extremities Exam Extremities exam: Present: normal capillary refill, full ROM, edema that involves the lower abdominal wall as well as the buttocks and upper thighs. He has edema of the lower legs. Scrotal edema (no change from previous exam). Absent: calf tenderness - Back Exam Back exam: Present: normal inspection - Neurological Exam Neurological exam: Present: alert, oriented X3 - Psychiatric Psychiatric exam: Present: normal affect, normal mood. Absent: agitated, anxious, depressed - Skin Skin exam: Present: warm, dry, intact. Absent: abrasion, cyanosis, diaphoretic , rash, suspicious lesion. Result/EKG - Labs CBC & BMP: 07/19/16 07:31 07/19/16 07:31 Lab Results: I have reviewed the past 24 hour labs Labs: Laboratory Results - last 24 hr 07/18/16 07/18/16 07/18/16 11:21 21:13 23:02 WBC RBC Hgb Hct MCV MCH MCHC RDW Plt Count MPV Neut % (Auto) Lymph % (Auto) Stokes % (Auto) Eos % (Auto) Baso % (Auto) Neut # (Auto) Lymph # (Auto) Stokes # (Auto) Eos # (Auto) Baso # (Auto) Immature Gran % Nucleated RBC % Immature Gran # Nucleated RBCs # Sodium Potassium Chloride Carbon Dioxide Anion Gap BUN Creatinine GFR Calculation BUN/Creatinine Ratio Glucose POC Glucose 177 H 258 H Calculated Osmolality Calcium B-Natriuretic Peptide Blood Type O POSITIVE Antibody Screen Negative Crossmatch See Detail 07/19/16 07/19/16 07/19/16 06:51 07:31 07:31 WBC 7.0 RBC 3.69 L Hgb 10.1 L Hct 31.8 L MCV 86.2 L MCH 27 MCHC 31.8 L RDW 15.2 Plt Count 265 MPV 10.0 Neut % (Auto) 81.9 H Lymph % (Auto) 10.0 L Stokes % (Auto) 7.8 Eos % (Auto) 0.0 Baso % (Auto) 0.0 Neut # (Auto) 5.8 Lymph # (Auto) 0.7 L Stokes # (Auto) 0.6 Eos # (Auto) 0.0 Baso # (Auto) 0.0 Immature Gran % 0.3 Nucleated RBC % 0.0 Immature Gran # 0.02 Nucleated RBCs # 0.00 Sodium 140 Potassium 5.2 H Chloride 102 Carbon Dioxide 34 H Anion Gap 9.2 BUN 54 H Creatinine 1.50 H GFR Calculation 70 BUN/Creatinine Ratio 36.00 H Glucose 121 H POC Glucose 127 H Calculated Osmolality 294.4 Calcium 9.4 B-Natriuretic Peptide Blood Type Antibody Screen Crossmatch 07/19/16 07:31 WBC RBC Hgb Hct MCV MCH MCHC RDW Plt Count MPV Neut % (Auto) Lymph % (Auto) Stokes % (Auto) Eos % (Auto) Baso % (Auto) Neut # (Auto) Lymph # (Auto) Stokes # (Auto) Eos # (Auto) Baso # (Auto) Immature Gran % Nucleated RBC % Immature Gran # Nucleated RBCs # Sodium Potassium Chloride Carbon Dioxide Anion Gap BUN Creatinine GFR Calculation BUN/Creatinine Ratio Glucose POC Glucose Calculated Osmolality Calcium B-Natriuretic Peptide 3265 H Blood Type Antibody Screen Crossmatch - EKG EKG results: interpreted by me, no acute changes EKG shows: sinus rhythm Quality Measures - VTE Contraindication to Pharmacological VTE Prophylaxis: Already on Theraputic Agent , No Prophylaxis Needed Specialty Discharge - Follow Up or Referrals Follow up with: Ora Tate MD [Physician] - 08/04/16 7:15 pm (Outpatient sleep study [facility].) Julius Spears John Timothy, MD, personally performed the services described in this documentation, ascribed by Moni Kulkarni RN in my presence, and it is both accurate and complete [id number] .
--- NOTE | 2016-07-19 21:09 | Internal Med Progress Note ---
Assessment and Plan (1) Diabetes Status: Chronic Current Visit: Yes Qualifiers: Diabetes mellitus type: type 2 Diabetes mellitus complication status: without complication Diabetes mellitus buttermaker insulin use: with buttermaker use Qualified Code(s): E11.9 - Type 2 diabetes mellitus without complications ; Z79.4 - long term (current) use of insulin (2) Hypertension Status: Chronic Current Visit: Yes Qualifiers: Hypertension type: essential hypertension Qualified Code(s): I10 - Essential (primary) hypertension (3) Congestive heart failure Status: Chronic Current Visit: Yes Qualifiers: Congestive heart failure type: diastolic Congestive heart failure chronicity: acute on chronic Qualified Code(s): I50.33 - Acute on chronic diastolic (congestive) heart failure (4) Generalized edema Status: Chronic Current Visit: Yes (5) Acute renal insufficiency Status: Acute Current Visit: Yes (6) Alcohol abuse Status: Acute Current Visit: Yes (7) Diastolic heart failure Status: Acute Current Visit: Yes Qualifiers: Heart failure chronicity: acute on chronic Qualified Code(s): I50.33 - Acute on chronic diastolic (congestive) heart failure (8) Hypoalbuminemia Status: Acute Current Visit: Yes (9) Suspected sleep apnea Status: Acute Current Visit: Yes (10) Smoker Status: Chronic Current Visit: Yes Internal Medicine - PN: Subj Interval history: Mr. Wagner is a 66 year old male with history of HTN, folate deficiency, Vit D deficiency, DM, dyslipidemia, recent CHF, who presented to ER with scrotal swelling and CHF. He was diuresed in ER and is not complaining of shortness of breath. However, oxygen saturation is low. He was hospitalized at [place], but did not improve. He was sent to [facility] for rehab, but was sent to [facility] ER for worsening scrotal swelling. Lasix did not help. He is doing better today, breathing better. Scrotal swelling may take a few days to resolve. Have added albumin IV infusion to help against third spacing. Monday, July 18, he is feeling better overall. However, he is anemic and may benefit from another unit of pRBC. Also, renal insufficiency has worsened. Will be addressed. BNP has improved along with improved generalized edema. He has history of alcohol abuse and is a current smoker. Will add nicotine patch. July 19, Renal function improved with blood transfusion last night (1 unit pRBC) , but BNP has elevated again. Scrotal swelling has not appreciably improved at this point. Attempted to help resolve third spacing with albumin infusion. ECHO indicates normal LVEF 60-65% but left ventricular hypertrophy and moderate pulmonary hypertension. Will add back low dose lasix. Exam (Progress Note) - Constitutional Vitals: Period Temp Pulse Resp BP Sys/Kat Pulse Ox Last 24 Hr 97.1 F-98.7 F 45-92 16-21 137-171/77-108 79-99 Exam: General appearance: no acute distress - Respiratory Respiratory exam: Present: clear to auscultation bilaterally - Cardiovascular Cardiovascular exam: Present: irregularly irregular and rate controlled - GI/Abdominal GI/Abdominal exam: Present: soft. Absent: tenderness - Extremities Exam Extremities exam: Present: edema (scrotal edema) - Neurological Exam Neurological exam: Present: alert - Psychiatric Psychiatric exam: Present: normal mood - Skin Skin exam: Present: warm, dry Results - Labs CBC & BMP: 07/20/16 05:05 07/20/16 05:05 Quality Measures - VTE Contraindication to Pharmacological VTE Prophylaxis: Already on Theraputic Agent , No Prophylaxis Needed Specialty Discharge - Follow Up or Referrals Follow up with: Ora Tate MD [Physician] - 08/04/16 7:15 pm (Outpatient sleep study [facility].)
[2016-07-20] MEDS: cefTRIAXone 1,000 MG in SODIUM CHLORIDE 0.9% 100 ML IV SCH ×2 (01:42→23:50)
[2016-07-20] MEDS: methylPREDNISolone SOD SUC 40 MG/1 ML VIAL IV SCH ×2 (03:14→15:20)
[2016-07-20 05:16] LABS: Basophils % 0.1 % (0.0-0.8); Eosinophils % 0.4 % (0.00-10.9); Hematocrit 32.2 VOL% (42.0-52.0); Immature Granulocytes % 0.3 %; Immature Granulocytes Absolute 0.02 #; Lymphocytes % 13.3 % (21.2-54.2); Mean Corpuscular HGB Conc 31.1 GM/DL (32-36); Mean Corpuscular Hemoglobin 27 PG (27-34); Mean Platelet Volume 10.1 FL (9.6-12.0); Monocytes # 0.7 10*3/uL (0.11-0.8); Monocytes % 9.6 % (1.7-12.7); Neutrophils # 5.8 10*3/uL (1.4-7.4); Neutrophils % 76.3 % (38.7-73.9); Platelet Count 261 T/CUMM (130-400); Red Cell Distribution Width 15.3 % (9.3-17.3); White Blood Count 7.6 T/CUMM (4-12)
[2016-07-20 05:51] LABS: Calcium 9.3 MG/DL (8.5-10.1); Potassium 5.1 MMOL/L (3.5-5.1)
[2016-07-20] MEDS: ALBUTEROL/IPRATROPIUM 3 ML NEB RESP TX SCH ×3 (07:45→19:45)
[2016-07-20] MEDS: BUDESONIDE 0.25 MG/2 ML NEB RESP TX SCH ×2 (07:55→19:46)
[2016-07-20] MEDS ORDERED: FUROSEMIDE 20 MG/2 ML VIAL IV ONE (08:35)
[2016-07-20] MEDS: INSULIN GLARGINE 100 UNIT/ML SUBCUT SCH ×2 (09:00→21:39)
[2016-07-20] MEDS: CHOLECALCIFEROL 1,000 UNIT TABLET PO SCH (09:28)
[2016-07-20] MEDS: FERROUS SULFATE 325 MG TABLET PO SCH (09:28)
[2016-07-20] MEDS: THIAMINE 100 MG TABLET PO SCH (09:28)
[2016-07-20] MEDS: ASPIRIN CHEW 81 MG TABLET PO SCH (09:28)
[2016-07-20] MEDS: MAGNESIUM OXIDE 400 MG TABLET PO SCH (09:29)
[2016-07-20] MEDS: DOCUSATE SODIUM 100 MG CAPSULE PO SCH ×2 (09:29→21:38)
[2016-07-20] MEDS: hydrALAZINE 25 MG TABLET PO SCH (09:29)
[2016-07-20] MEDS: METOPROLOL TARTRATE 50 MG TABLET PO SCH ×2 (09:29→21:38)
[2016-07-20] MEDS: NICOTINE 14 MG/24 HR PATCH TRANSDERM SCH (09:31)
[2016-07-20] MEDS: INSULIN REGULAR 100 UNIT/ML SUBCUT SCH ×4 (09:33→21:38)
--- NOTE | 2016-07-20 09:54 | Cardiology Progress Note ---
Shad Spears Vanessa, RN, am scribing for, and in the presence of, Hakeem Madrid MD 09:47. Assessment and Plan - Time spent with patient Time spent with patient: Greater than 30 minutes (1) Congestive heart failure Status: Chronic Assessment and plan: Patient has a lower extremity edema as well as scrotal edema. His chest x-ray reveals some evidence for congestive heart failure. His most recent chest x- ray revealed marked improvement though will pulmonary vascular congestion. Much of his symptomatology is secondary to diastolic dysfunction and hypertension. The best way to treat this is diuresis and blood pressure control. His diuresis is been limited secondary to his renal dysfunction. Current Visit: Yes Qualifiers: Congestive heart failure type: diastolic Congestive heart failure chronicity: acute on chronic Qualified Code(s): I50.33 - Acute on chronic diastolic (congestive) heart failure (2) Hypertension Status: Chronic Assessment and plan: Blood pressure still high than what it needs to be especially with his diastolic dysfunction and left ventricular hypertrophy. Certain medications will be limited to would recommend staying away from ARBs as well as TRAVIS inhibitors because of elevated potassium and creatinine the addition of a CA+ channel delilah especially dihydropridine may exacerbate his edema. Hydralazine or clonidine as well as terazosin etc may be a good choice. Current Visit: Yes Qualifiers: Hypertension type: essential hypertension Qualified Code(s): I10 - Essential (primary) hypertension (3) Generalized edema Status: Chronic Assessment and plan: This has shown some improvement, and complete resolution of this will be ongoing , slow process. Can be monitored and followed up with on an outpatient basis. Of course, patient will need to be compliant with medical regimen. Diuretic has been restarted. Current Visit: Yes (4) Smoker Status: Chronic Assessment and plan: Encouraged tobacco cessation. Current Visit: Yes (5) Diabetes Status: Chronic Assessment and plan: Primary management physician. Current Visit: Yes Qualifiers: Diabetes mellitus type: type 2 Diabetes mellitus complication status: without complication Diabetes mellitus senior care insulin use: with senior care use Qualified Code(s): E11.9 - Type 2 diabetes mellitus without complications ; Z79.4 - intermodal owner operator truck driver (current) use of insulin (6) Suspected sleep apnea Status: Acute Assessment and plan: He has sleep studies scheduled. Current Visit: Yes (7) Scrotal swelling Status: Acute Assessment and plan: This is probably secondary to his underlying other cardiac and pulmonary issues. Current Visit: Yes Cardiology - PN: Subj Interval history: PRIMARY RETAIL ASSET PROTECTION SPECIALIST: DR. CRAWFORD (NEW) SUMMARY: Mr. Wagner is a 66-year-old black male with risk factor significant for hypertension, diabetes, tobacco use, and family history of CAD. Past medical history includes Congestive heart failure, respiratory failure, chronic renal insufficiency, anemia. Patient presented to [place]'s ED on July 14 complaining of scrotal edema and some abdominal distention with onset 3 weeks prior. He did report that he had recently been hospitalized for 1 week and discharged from [facility] for treatment of CHF resulting in acute respiratory failure with subsequent intubation, and he was currently admitted to a swing bed facility. He had also visited [place] ER recently, and had had his Lasix dose increased without much improvement in his shortness of breath or swelling. Chest x-ray in ER showed moderate diffuse pulmonary opacities bilaterally, and BNP 1650. Patient also had some orthopnea. [facility]ures[facility] and observation. Echocardiogram on July 15 with moderate LVH, diastolic dysfunction, LV ejection fraction 60-65%, normal RV, mildly enlarged RA, severely increased LA, mild MR, moderate TR with PA pressure 49 mmHg. Patient has had a fair response to diuresis. Chest x-ray is improved. Urology has evaluated patient. Cardiology was asked to see for further evaluation of acute on chronic diastolic congestive heart failure with LV ejection fraction 60-65%. July UPDATE: Mr. Wagner is awake and alert this morning, standing up at bedside today, eating breakfast. No acute distress. Reports he rested well overnight. Denies shortness of breath or chest pain. Scrotal edema appears to be slightly increased today, patient denies discomfort with this. Per his report, he says he is returning to the half-way today. Systolic BP 150-165 mmHg. Pulse is 80s, and chart shows patient continues to have some intermittent bradycardia with pulse upper 40s to low 50s overnight while asleep. H&H 10.0/32.2. Potassium 5.1. Creatinine continues to decrease and today is 1.4. BNP is increased from 3265 to 3606 today. He is being restarted on low-dose diuresis which hopefully will help. Certainly he has exacerbation of his edema with his diastolic dysfunction and some elevation of his right-sided pressures. His last albumin is were okay. Much of his findings lower extremities though appeared to be chronic. For his diastolic dysfunction blood pressure management and diuresis over the best approaches. His renal dysfunction though limits his diuresis at times. His blood pressure still high that needs to be I think we can go up on his hydralazine and add doxazosin. Exam (Progress Note) - Constitutional Vitals: Period Temp Pulse Resp BP Sys/Kat Pulse Ox Last 24 Hr 96.9 F-98.2 F 45-90 16-20 148-171/79-108 88-99 Exam: General appearance: no acute distress, over weight - Head Head exam: Present: normal inspection. Absent: abrasion, contusion, laceration - Eye Eye exam: Present: EOMI. Absent: periorbital swelling, laceration to eyelids Pupils: Present: EZEQUIEL. Absent: dilated, fixed - ENT ENT exam: Present: normal external ear exam - Neck Neck exam: Present: normal inspection. Absent: tenderness - Respiratory Respiratory exam: Present: clear to auscultation bilaterally. Absent: accessory muscle use, rales, rhonchi, stridor, wheezes - Cardiovascular Cardiovascular exam: Present: systolic murmur, regular rhythm, transient bradycardia. Absent: carotid bruit, JVD, tachycardia - GI/Abdominal GI/Abdominal exam: Present: hypoactive bowel sounds, soft. Absent: firm, mass, tenderness - Extremities Exam Extremities exam: Present: normal capillary refill, full ROM, edema (1+ bilateral lower extremities. Scrotal edema (appears slightly increased from previous exam). Absent: calf tenderness - Back Exam Back exam: Present: normal inspection - Neurological Exam Neurological exam: Present: alert, oriented X3 - Psychiatric Psychiatric exam: Present: normal affect, normal mood. Absent: agitated, anxious, depressed - Skin Skin exam: Present: warm, dry, intact. He has chronic skin changes lower extremities some of this may be secondary to chronic edema or venous insufficiency. Absent: abrasion, cyanosis, diaphoretic, rash, suspicious lesion. Result/EKG - Labs CBC & BMP: 07/20/16 05:05 07/20/16 05:05 Lab Results: I have reviewed the past 24 hour labs Labs: Laboratory Results - last 24 hr 07/19/16 07/19/16 07/19/16 07:31 07:31 11:02 WBC RBC Hgb Hct MCV MCH MCHC RDW Plt Count MPV Neut % (Auto) Lymph % (Auto) [place] % (Auto) Eos % (Auto) Baso % (Auto) Neut # (Auto) Lymph # (Auto) [place] # (Auto) Eos # (Auto) Baso # (Auto) Immature Gran % Nucleated RBC % Immature Gran # Nucleated RBCs # Sodium 140 Potassium 5.2 H Chloride 102 Carbon Dioxide 34 H Anion Gap 9.2 BUN 54 H Creatinine 1.50 H GFR Calculation 70 BUN/Creatinine Ratio 36.00 H Glucose 121 H POC Glucose 223 H Calculated Osmolality 294.4 Calcium 9.4 B-Natriuretic Peptide 3265 H 07/19/16 07/19/16 07/20/16 16:43 20:19 05:05 WBC 7.6 RBC 3.70 L Hgb 10.0 L Hct 32.2 L MCV 87.0 MCH 27 MCHC 31.1 L RDW 15.3 Plt Count 261 MPV 10.1 Neut % (Auto) 76.3 H Lymph % (Auto) 13.3 L [place] % (Auto) 9.6 Eos % (Auto) 0.4 Baso % (Auto) 0.1 Neut # (Auto) 5.8 Lymph # (Auto) 1.0 L [place] # (Auto) 0.7 Eos # (Auto) 0.0 Baso # (Auto) 0.0 Immature Gran % 0.3 Nucleated RBC % 0.0 Immature Gran # 0.02 Nucleated RBCs # 0.00 Sodium Potassium Chloride Carbon Dioxide Anion Gap BUN Creatinine GFR Calculation BUN/Creatinine Ratio Glucose POC Glucose 156 H 188 H Calculated Osmolality Calcium B-Natriuretic Peptide 07/20/16 07/20/16 07/20/16 05:05 05:05 07:18 WBC RBC Hgb Hct MCV MCH MCHC RDW Plt Count MPV Neut % (Auto) Lymph % (Auto) [place] % (Auto) Eos % (Auto) Baso % (Auto) Neut # (Auto) Lymph # (Auto) [place] # (Auto) Eos # (Auto) Baso # (Auto) Immature Gran % Nucleated RBC % Immature Gran # Nucleated RBCs # Sodium 143 Potassium 5.1 Chloride 103 Carbon Dioxide 33 H Anion Gap 12.1 BUN 53 H Creatinine 1.40 H GFR Calculation 76 BUN/Creatinine Ratio 37.00 H Glucose 75 POC Glucose 67 L Calculated Osmolality 297.0 Calcium 9.3 B-Natriuretic Peptide 3606 H - EKG EKG results: interpreted by me, no acute changes Quality Measures - VTE Contraindication to Pharmacological VTE Prophylaxis: Already on Theraputic Agent , No Prophylaxis Needed Specialty Discharge - Follow Up or Referrals Follow up with: Ora Tate MD [Physician] - 08/04/16 7:15 pm (Outpatient sleep study [facility] I, Hakeem Madrid MD, personally performed the services described in this documentation, ascribed by Moni Kulkarni RN in my presence, and it is both accurate and complete [id number] .
[2016-07-20 15:51] LABS: Calcium 9.3 MG/DL (8.5-10.1); Osmolality,Calculated 297.4 MOS/KG (273-304); Potassium 5.5 MMOL/L (3.5-5.1)
[2016-07-20] MEDS: ENOXAPARIN 40 MG/0.4 ML SYRINGE SUBCUT SCH (17:06)
--- NOTE | 2016-07-20 18:05 | Sleep Medicine Progress Note ---
Assessment and Plan (1) Suspected sleep apnea Status: Acute Assessment and plan: He is being discharged today and we will set him up for outpatient polysomnography to exclude sleep apnea. Thank you for this consult. 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 He looks to be breathing comfortably. We had anticipated doing an HST evaluation on him tonight but I have since found out that he is being discharged this evening. Based on this, we will set him up for outpatient polysomnography to exclude sleep apnea. Thank you for this consult. Exam (Progress Note) - Constitutional Vitals: Period Temp Pulse Resp BP Sys/Kat Pulse Ox Last 24 Hr 96.9 F-98.3 F 46-92 16-20 151-166/70-88 81-99 Exam: He is alert and responsive in no acute distress. He looks much better. Oropharynx with a class IV Mallampati exam. Neck is supple without adenopathy or thyromegaly. Chest with good air movement and no focal wheeze or rhonchi. Cardiac exam reveals a regular rhythm without murmur or gallop. Abdomen soft nontender extremities with chronic venous insufficiency changes chronic edema. Neurologically, he is ambulatory and moving all extremities. Results - Labs CBC & BMP: 07/20/16 05:05 07/20/16 14:18 Lab Results: I have reviewed the past 24 hour labs Specialty Discharge - Follow Up or Referrals Follow up with: Ora Tate MD [Physician] - 08/04/16 7:15 pm (Outpatient sleep study [facility].)
--- NOTE | 2016-07-20 19:03 | Discharge Summary ---
Hospital Course - Hospital Course Hospital Course: Mr. Wagner is a 66 year old male with history of HTN, folate deficiency, Vit D deficiency, DM, dyslipidemia, recent CHF, who presented to ER with scrotal swelling and CHF. He was diuresed in ER and is not complaining of shortness of breath. However, oxygen saturation is low. He was hospitalized at [place], but did not improve. He was sent to long-term for rehab, but was sent to [place] ER for worsening scrotal swelling. Lasix did not help. He is doing better today, breathing better. Scrotal swelling may take a few days to resolve. Have added albumin IV infusion to help against third spacing. July 18, he is feeling better overall. However, he is anemic and may benefit from another unit of pRBC. Also, renal insufficiency has worsened. Will be addressed. BNP has improved along with improved generalized edema. He has history of alcohol abuse and is a current smoker. Will add nicotine patch. Renal function improved with blood transfusion (1 unit pRBC), but BNP has elevated again. Scrotal swelling has not appreciably improved at this point. Attempted to help resolve third spacing with albumin infusion. ECHO indicates normal LVEF 60-65% but left ventricular hypertrophy and moderate pulmonary hypertension. Will add back low dose lasix. He had been given solumedrol and antibiotic coverage while here because of wet lungs from pulmonary edema and CHF exacerbation. Doing better now. His renal function tolerates low dose lasix. Will discharge him to long-term to continue treatment there. He will have an outpatient sleep study under Dr. Trammell within a few weeks. Diagnosis - Discharge Diagnosis (1) Diabetes Status: Chronic (2) Hypertension Status: Chronic (3) Congestive heart failure Status: Chronic (4) Generalized edema Status: Chronic (5) Acute renal insufficiency Status: Acute (6) Alcohol abuse Status: Chronic (7) Diastolic heart failure Status: Chronic (8) Hypoalbuminemia Status: Acute (9) Suspected sleep apnea Status: Chronic (10) Smoker Status: Chronic Specialty Discharge - Follow Up or Referrals Follow up with: Ora Trammell MD [Physician] - 08/04/16 7:15 pm (Outpatient sleep study [facility].) Discharge Plan - Discharge Data Disposition: Disch/Xfer to Snf Condition at Discharge: Stable Discharge Diet: low fat, low cholesterol Activity: resume usual activities as tolerated, as per physical therapy, increase activity as tolerated - Discharge Medications New Acetaminophen Tab [Tylenol Tab] 650 mg PO Q6H PRN tablet PRN Reason: Fever > 100.4 Or Headache Albuterol/Ipratropium Neb [Duoneb] 3 ml RESP TX RT Q6H Docusate Sodium Cap [Colace Cap] 100 mg PO BID capsule hydrALAZINE TAB [Apresoline Tab] 50 mg PO TID tablet Metoprolol Tartrate Tab [Lopressor Tab] 50 mg PO BID tablet Nicotine 14 mg/24 Hr Patch [Nicoderm CQ 14 mg/24 hr Patch] 1 patch TRANSDERM DAILY patch Skin Healing Oint (Aquaphor) [Aquaphor] 1 applic TOP PRN PRN applic PRN Reason: Dry Skin Terazosin [Hytrin] 2 mg PO BEDTIME capsule Insulin Regular [HumuLIN R] See Protocol SUBCUT ACHS unit Furosemide Tab [Lasix Tab] 20 mg PO DAILY #30 tablet Continue Thiamine Tab [Vitamin B1 Tab] 100 mg PO DAILY Pantoprazole Tab [Protonix Tab] 40 mg PO DAILY Lactulose Liquid [Chronulac] 15 ml PO Q12H PRN PRN Reason: Constipation Insulin Glargine [Lantus] 20 unit SUBCUT BEDTIME Ergocalciferol [Drisdol] 50,000 unit PO MO Cholecalciferol [Vitamin D3] 1,000 unit PO DAILY Insulin Glargine [Lantus] 20 unit SUBCUT QAM #0 Aspirin Chew Tab 81 mg PO DAILY traMADol TAB [Ultram] 50 mg PO Q6H PRN PRN Reason: Pain Magnesium Oxide 420 mg PO DAILY Ferrous Sulfate Tab [Feosol Original Tab] 325 mg PO DAILY Discontinued Metoprolol Tartrate Tab [Lopressor Tab] 100 mg PO Q12H Folic Acid Tab 1 mg PO DAILY Ibuprofen Tab [Motrin Tab] 400 mg PO Q8H PRN PRN Reason: Pain - Follow Up or Referral Follow Up: Ora Trammell MD [Physician] - 08/04/16 7:15 pm (Outpatient sleep study [facility].) - Forms/Instructions Additional Discharge Instructions: He will need sleep study outpatient within a few weeks. Please have him follow a PO fluid restriction of no more than 1000 cc in a 24 hour period. Exam - Constitutional Vitals: Period Temp Pulse Resp BP Sys/Kat Pulse Ox Last 24 Hr 96.9 F-98.3 F 46-92 16-20 151-166/70-88 81-99 Exam: General appearance: no acute distress - Respiratory Respiratory exam: Present: clear to auscultation bilaterally - Cardiovascular Cardiovascular exam: Present: irregularly irregular and rate controlled - GI/Abdominal GI/Abdominal exam: Present: soft. Absent: tenderness - Extremities Exam Extremities exam: Present: edema (scrotal edema) - Neurological Exam Neurological exam: Present: alert - Psychiatric Psychiatric exam: Present: normal mood - Skin Skin exam: Present: warm, dry Discharge Results Procedures and tests throughout hospitalization: Pending Orders 07/21/16 04:00 B-Type Natriuretic Peptide IN AM Comp Blood Count Auto Diff IN AM Labs on day of discharge: Labs from last 24 hours 07/20/16 07/20/16 07/20/16 16:36 14:18 14:18 WBC RBC Hgb Hct MCV MCH MCHC RDW Plt Count MPV Neut % (Auto) Lymph % (Auto) [place] % (Auto) Eos % (Auto) Baso % (Auto) Neut # (Auto) Lymph # (Auto) [place] # (Auto) Eos # (Auto) Baso # (Auto) Immature Gran % Nucleated RBC % Immature Gran # Nucleated RBCs # Sodium 140 Potassium 5.5 H Chloride 99 Carbon Dioxide 34 H Anion Gap 12.5 BUN 51 H Creatinine 1.40 H GFR Calculation 76 BUN/Creatinine Ratio 36.00 H Glucose 186 H POC Glucose 219 H Calculated Osmolality 297.4 Calcium 9.3 B-Natriuretic Peptide 2700 H 07/20/16 07/20/16 07/20/16 11:04 07:18 05:05 WBC RBC Hgb Hct MCV MCH MCHC RDW Plt Count MPV Neut % (Auto) Lymph % (Auto) [place] % (Auto) Eos % (Auto) Baso % (Auto) Neut # (Auto) Lymph # (Auto) [place] # (Auto) Eos # (Auto) Baso # (Auto) Immature Gran % Nucleated RBC % Immature Gran # Nucleated RBCs # Sodium Potassium Chloride Carbon Dioxide Anion Gap BUN Creatinine GFR Calculation BUN/Creatinine Ratio Glucose POC Glucose 147 H 67 L Calculated Osmolality Calcium B-Natriuretic Peptide 3606 H 07/20/16 07/20/16 07/19/16 05:05 05:05 20:19 WBC 7.6 RBC 3.70 L Hgb 10.0 L Hct 32.2 L MCV 87.0 MCH 27 MCHC 31.1 L RDW 15.3 Plt Count 261 MPV 10.1 Neut % (Auto) 76.3 H Lymph % (Auto) 13.3 L [place] % (Auto) 9.6 Eos % (Auto) 0.4 Baso % (Auto) 0.1 Neut # (Auto) 5.8 Lymph # (Auto) 1.0 L [place] # (Auto) 0.7 Eos # (Auto) 0.0 Baso # (Auto) 0.0 Immature Gran % 0.3 Nucleated RBC % 0.0 Immature Gran # 0.02 Nucleated RBCs # 0.00 Sodium 143 Potassium 5.1 Chloride 103 Carbon Dioxide 33 H Anion Gap 12.1 BUN 53 H Creatinine 1.40 H GFR Calculation 76 BUN/Creatinine Ratio 37.00 H Glucose 75 POC Glucose 188 H Calculated Osmolality 297.0 Calcium 9.3 B-Natriuretic Peptide DS: Provider Date of admission: 07/14/16 16:48 Primary care physician: . No PCP Attending physician on admission: Nara Tafoya DO Consults: 07/14/16 19:32 Consult to Case Mgmt/Social Srvs [CONS] Routine Reason for Case Mgmt/Social Srvs: Discharge Planning 07/14/16 22:05 Consult to Physician [CONS] Routine Comment: scrotal swelling Consulting Provider: Alexandr Clay Consulting Provider Notified: Yes When should Consulting Provider be notified: Now Person Notified: felisa called Date Notified: 07/15/16 Time Notified: 08:46 07/16/16 16:04 Consult to Physician [CONS] Routine Comment: Congestive heart failure, physician apron trimmer Consulting Provider: Michael Allen When should Consulting Provider be notified: In am Person Notified: Dr. Allen Date Notified: 07/17/16 Time Notified: 12:23 Consult Notification Comment: Dr. Allen said he would be up to see the patient in a little bit. 07/17/16 14:14 Consult to Physician [CONS] Routine Comment: Consulting Provider: Ora Trammell Consulting Provider Notified: Yes When should Consulting Provider be notified: In am Person Notified: thanh called Date Notified: 07/18/16 Time Notified: 09:57 Consult Notification Comment: Generalized edema, diastolic heart failure, scrotal edema, low albumin, small oropharynx, snoring, excessive daytime somnolence. I am suspicious that he has obstructive or central sleep apnea or both. Please evaluate and treat. Thank you. 07/18/16 09:53 Consult to Sleep Center [CONS] Routine Reason for Sleep Center: Sleep Center Physician Consult Comment: consult dr. trammell obstructive/central sleep apnea or both Discharging clinician: Nara Tafoya DO Expected date of discharge: 07/20/16
[2016-07-20] MEDS ORDERED: TERAZOSIN 2 MG CAPSULE PO SCH (21:00)
[2016-07-21] MEDS: ALBUTEROL/IPRATROPIUM 3 ML NEB RESP TX SCH ×3 (01:14→13:58)
[2016-07-21] MEDS: methylPREDNISolone SOD SUC 40 MG/1 ML VIAL IV SCH (03:21)
[2016-07-21 06:42] LABS: Eosinophils % 0.7 % (0.00-10.9); Hematocrit 30.8 VOL% (42.0-52.0); Hemoglobin 9.7 GM/DL (14.0-18.0); Immature Granulocytes % 0.3 %; Immature Granulocytes Absolute 0.02 #; Lymphocytes # 1.1 10*3/uL (1.4-4.0); Lymphocytes % 17.4 % (21.2-54.2); Mean Corpuscular HGB Conc 31.5 GM/DL (32-36); Mean Corpuscular Hemoglobin 27 PG (27-34); Mean Platelet Volume 10.7 FL (9.6-12.0); Monocytes # 1.1 10*3/uL (0.11-0.8); Monocytes % 17.8 % (1.7-12.7); Neutrophils # 3.9 10*3/uL (1.4-7.4); Neutrophils % 63.8 % (38.7-73.9); Platelet Count 237 T/CUMM (130-400); Red Blood Count 3.54 MC/CUMM (3.8-5.5); Red Cell Distribution Width 15.7 % (9.3-17.3); White Blood Count 6.1 T/CUMM (4-12)
[2016-07-21 07:20] LABS: Hypochromasia 2+; Lymphocytes 9 % (20-55); Microcytosis 1+; Segmented Neutrophils 76 % (50-85); Target Cells Slight; Total Cells Counted 100
[2016-07-21 07:21] LABS: Platelet Estimate Normal
[2016-07-21] MEDS: BUDESONIDE 0.25 MG/2 ML NEB RESP TX SCH (07:29)
[2016-07-21] MEDS: INSULIN REGULAR 100 UNIT/ML SUBCUT SCH ×2 (07:48→12:00)
[2016-07-21] MEDS: THIAMINE 100 MG TABLET PO SCH (09:05)
[2016-07-21] MEDS: DOCUSATE SODIUM 100 MG CAPSULE PO SCH (09:05)
[2016-07-21] MEDS: ASPIRIN CHEW 81 MG TABLET PO SCH (09:05)
[2016-07-21] MEDS: FERROUS SULFATE 325 MG TABLET PO SCH (09:05)
[2016-07-21] MEDS: CHOLECALCIFEROL 1,000 UNIT TABLET PO SCH (09:05)
[2016-07-21] MEDS: METOPROLOL TARTRATE 50 MG TABLET PO SCH (09:06)
[2016-07-21] MEDS: MAGNESIUM OXIDE 400 MG TABLET PO SCH (09:06)
[2016-07-21] MEDS: NICOTINE 14 MG/24 HR PATCH TRANSDERM SCH (09:06)
[2016-07-21] MEDS: INSULIN GLARGINE 100 UNIT/ML SUBCUT SCH (09:08)
[2016-07-21 11:20] VITALS: BP 162/85
== END 2016-07-21 14:25 | DRG 291 ==
LOC: EDUNIT# → N.ED 15:02 → N.EDINP 16:48 → N.3E 17:54
PROVIDERS: ADMIT Internal Medicine; ATTEND Internal Medicine